=== PATIENT | male | born 1970 | race Caucasian/White ===

== ENCOUNTER 2024-02-10 11:12 | Outpatient (CLI) | payer MEDICAID, SELFPAY | END 2024-02-10 11:13 | disposition home or self-care (01) | LOC: AMB 02-12 05:33 | PROVIDERS: Visit Provider Family Medicine | DX: S67.22XA Crushing injury of left hand, initial encounter (principal); X58.XXXA Exposure to other specified factors, initial encounter; Y92.481 Parking lot as the place of occurrence of the external cause | CPT/HCPCS: A0425; A0427 ==